=== PATIENT | female | born 1975 | race Two or more races ===

== ENCOUNTER 2017-11-26 09:38 | Emergency (ER) | payer OTHER ==
[2017-11-26 09:52] VITALS: TEMP 98; BMI 29.0
--- NOTE | 2017-11-26 10:37 | PDOC ---
History of Present Illness - General Chief Complaint: Vaginal Bleeding Stated Complaint: Vaginal bleeding Time Seen by Provider: 11/26/17 10:34 History Source: Patient Past History - Past Medical History Allergies/Adverse Reactions: Allergies Allergy/AdvReac Type Severity Reaction Status Date / Time No Known Allergies Allergy Verified 11/26/17 09:52 Home Medications: Ambulatory Orders NK [No Known Home Medication] 11/26/17 COPD: No - Suicide/Smoking/Psychosocial Hx Smoking History: Never smoked Information on smoking cessation initiated: Yes Hx Alcohol Use: No Drug/Substance Use Hx: No Substance Use Type: None Review of Systems - Review of Systems Constitutional: No: Chills, Fever ABD/GI: Yes: Abdominal cramping. No: Nausea, Vomiting : No: Burning, Flank Pain *Physical Exam - Vital Signs Last Vital Signs Temp Pulse Resp BP Pulse Ox 98 F 69 18 137/80 99 11/26/17 09:49 11/26/17 09:49 11/26/17 09:49 11/26/17 09:49 11/26/17 09:49 - Physical Exam General Appearance: Yes: Appropriately Dressed. No: Apparent Distress HEENT: positive: Normal Voice Neck: positive: Supple Respiratory/Chest: negative: Respiratory Distress Gastrointestinal/Abdominal: positive: Soft. negative: Tender Musculoskeletal: negative: CVA Tenderness Integumentary: positive: Dry, Warm Neurologic: positive: Fully Oriented, Alert, Normal Mood/Affect ED Treatment Course - LABORATORY CBC & Chemistry Diagram: 11/26/17 11:56 11/26/17 11:56 Medical Decision Making - Medical Decision Making 11/26/17 10:37 42 yo F, no sig hx, (s/p 2 spon abs), here to be tested for . Patient states her LMP was 09/12/2017 and has had multiple negative tests, including [place] [facility]. States she has now been spotting for the past 4 days w/ vague lower abdominal pain. No dysuria, nausea, vomiting, fever or chills. Patient states she is concerned as she has not gotten a normal period in 2 months and wants another test, including blood work See exam DUB Multiple neg preg tests over past 2 months but wants another evaluation today -labs pending 11/26/17 13:05 Patient's urine and serum tests were negative. Rest of blood work within normal limits. Patient asymptomatic at this time and stable for discharge to follow-up with her [facility] for further evaluation of dysfunctional uterine bleeding *DC/Admit/Observation/Transfer Diagnosis at time of Disposition: DUB (dysfunctional uterine bleeding) - Discharge Dispostion Disposition: HOME Condition at time of disposition: Good - Referrals - Patient Instructions Additional Instructions: Cabrera prueba de embarazo fue negativa junto con cabrera otro anlisis de sirena. Definitivamente no ests embarazada. Yamilka sangrado vaginal anormal posiblemente podra representar la fase gilda- menopusica, cerca del momento de menopausia de carol eladio, que es cuando cesa cabrera perodo Sin embargo, esto no es seguro y necesita hacer un seguimiento con cabrera gineclogo para carol evaluacin adicional - Post Discharge Activity
[2017-11-26 12:11] LABS: URINE APPEARANCE SLCLOUDY; URINE BILIRUBIN NEGATIVE (<2.0 mg/dL); URINE COLOR YELLOW; URINE GLUCOSE (UA) NEGATIVE (NEGATIVE); URINE KETONE NEGATIVE (NEGATIVE); URINE NITRITE NEGATIVE (NEGATIVE); URINE PROTEIN NEGATIVE (NEGATIVE); URINE UROBILINOGEN NEGATIVE mg/dL (0.2-1.0)
[2017-11-26 12:12] LABS: URINE LEUK ESTERASE 2+ (NEGATIVE)
[2017-11-26 12:13] LABS: EPI CELLS FEW /HPF (FEW); URINE BACTERIA FEW /hpf (NONE SEEN)
[2017-11-26 12:15] LABS: BASO % 0.3 % (0-2.0); HEMATOCRIT 40.4 % (32.4-45.2); HEMOGLOBIN 13.5 GM/dL (10.7-15.3); LYMPH % 17.7 % (8-40); MCH 28.6 pg (25.7-33.7); MCHC 33.5 g/dl (32.0-36.0); MEAN CELL VOLUME 85.4 fl (80-96); MEAN PLT VOLUME 9.7 fl (7.5-11.1); MONO % 4.6 % (3.8-10.2); NEUT % 76.4 % (42.8-82.8); PLATELET COUNT 200 K/MM3 (134-434); RBC 4.73 M/mm3 (3.60-5.2); RDW 12.8 % (11.6-15.6); WHITE BLOOD COUNT 10.3 K/mm3 (4.0-10.0)
[2017-11-26 12:42] LABS: ALBUMIN 3.8 g/dl (3.4-5.0); ALK PHOS 70 U/L (45-117); ANION GAP 11 MMOL/L (8-16); BILIRUBIN,TOTAL 0.2 mg/dL (0.2-1); BLOOD UREA NITROGEN 10 mg/dL (7-18); CALCIUM 9.6 mg/dL (8.5-10.1); CHLORIDE 102 mmol/L (98-107); CO2 25 mmol/L (21-32); CREATININE 0.8 mg/dL (0.55-1.3); GLUCOSE,RANDOM 86 mg/dL (74-106); LIPASE 215 U/L (73-393); SGOT/AST 12 U/L (15-37); SGPT/ALT 18 U/L (13-61); SODIUM 138 mmol/L (136-145); TOT PROT 8.2 g/dl (6.4-8.2)
[2017-11-26 13:12] VITALS: BP 128/80; PULSE 70
== END 2017-11-26 13:12 | disposition home or self-care (01) ==
LOC: JER 09:38
DX: N93.8 Other specified abnormal uterine and vaginal bleeding (principal)
CPT/HCPCS: 36415; 80053; 81003; 81015; 83690; 84702; 84703; 85025; 99281-25

== ENCOUNTER 2018-01-30 16:08 | Emergency (ER) | payer OTHER ==
[2018-01-30 16:22] VITALS: TEMP 98; BMI 28.2
--- NOTE | 2018-01-30 16:25 | PDOC ---
Rapid Medical Evaluation Chief Complaint: Lightheaded Time Seen by Provider: 01/30/18 16:23 Medical Evaluation: Allergies Allergy/AdvReac Type Severity Reaction Status Date / Time No Known Allergies Allergy Verified 01/30/18 16:19 Vital Signs Temp Pulse Resp BP Pulse Ox 98.0 F 83 18 95/58 L 100 01/30/18 16:19 01/30/18 16:19 01/30/18 16:19 01/30/18 16:19 01/30/18 16:19 01/30/18 16:24 I have performed a brief in-person evaluation of this patient. The patient presents with a chief complaint of: abd pain and dizziness today. No pmhx Pertinent physical exam findings: pale and hypotensive I have ordered the following:ekg/labs The patient will proceed to the ED for further evaluation. 01/30/18 16:25 Discharge Disposition - Diagnosis Dizziness - Referrals - Patient Instructions - Post Discharge Activity
[2018-01-30 16:37] LABS: BASO % 0.8 % (0-2.0); EOS % 1.3 % (0-4.5); HEMATOCRIT 35.6 % (32.4-45.2); HEMOGLOBIN 12.5 GM/dL (10.7-15.3); MCH 29.5 pg (25.7-33.7); MCHC 35.3 g/dl (32.0-36.0); MEAN CELL VOLUME 83.6 fl (80-96); MEAN PLT VOLUME 9.5 fl (7.5-11.1); MONO % 4.3 % (3.8-10.2); NEUT % 68.6 % (42.8-82.8); PLATELET COUNT 264 K/MM3 (134-434); RBC 4.25 M/mm3 (3.60-5.2); RDW 12.6 % (11.6-15.6); WHITE BLOOD COUNT 12.8 K/mm3 (4.0-10.0)
[2018-01-30] MEDS ORDERED: MAG HYDROX/AL HYDROX/SIMETH 30 ML UNIT-DOSE CUP PO ONE (17:16)
[2018-01-30] MEDS ORDERED: ONDANSETRON 4 MG/2 ML VIAL IVPUSH ONE (17:16)
[2018-01-30] MEDS ORDERED: SODIUM CHLORIDE 1,000 ML IV STA (17:16)
[2018-01-30] MEDS ORDERED: FAMOTIDINE 20 MG/50 ML IVPB 20 MG/50 ML MG IVPB ONE ×2 (17:16→18:57)
--- NOTE | 2018-01-30 17:26 | PDOC ---
History of Present Illness - General Chief Complaint: Lightheaded Stated Complaint: DIZZINESS Time Seen by Provider: 01/30/18 16:23 - History of Present Illness Initial Comments: 01/30/18 17:16 42 yo F with no significant pmh who p/w epigastirc abdominal pain and lightheadedness. Patient reports acute, unremitting, episode of sharp, burning, epiagstirc pain beginning at 3:30 PM today while standing. Reports episode of subsequent lightheadedness, with absent LOC lasting for seconds then resolving spontaneously. Patient daughter at bedside states that patient looked pale, and lips appeared blue. Currently with cont'd abdominal pain. Pain worse with erect sitting position, and aggravated with PO food intake. Endorses nausea without vomiting. Pain not improved with OTC analgesia. Denies GI f/u or h/o endoscopy or colonoscopy. Nml bowel habits.LMP x 2 weeks ago. Patient denies palpitations, vision change, hearing loss, cough, wheezing, PND, orthopnea, F,C, CP, SOB, urinary complaints, abdominal pain, BPR, hematuria, diarrhea, constipation, lightheadedness, weakness, sensory changes. PMHx: as noted above ROS: as noted Allergies: NKDA Past History - Past Medical History Allergies/Adverse Reactions: Allergies Allergy/AdvReac Type Severity Reaction Status Date / Time No Known Allergies Allergy Verified 01/30/18 16:19 Home Medications: Ambulatory Orders NK [No Known Home Medication] 11/26/17 COPD: No - Reproductive History (#): 4 Para: 2 Spontaneous : 2 - Immunization History Immunization Up to Date: Yes - Suicide/Smoking/Psychosocial Hx Smoking History: Never smoked Hx Alcohol Use: No Drug/Substance Use Hx: No Substance Use Type: None Review of Systems - Review of Systems Comments:: 01/30/18 17:30 GENERAL/CONSTITUTIONAL: No fever or chills. No weakness. HEAD, EYES, EARS, NOSE AND THROAT: No change in vision. No ear pain or discharge. No sore throat. CARDIOVASCULAR: No chest pain or shortness of breath RESPIRATORY: No cough, wheezing, or hemoptysis. GASTROINTESTINAL: + Abdominal pain, nausea, vomiting. No diarrhea or constipation. GENITOURINARY: No dysuria, frequency, or change in urination. MUSCULOSKELETAL: No joint or muscle swelling or pain. No neck or back pain. SKIN: No rash NEUROLOGIC: No headache, vertigo, loss of consciousness, or change in strength/ sensation. ENDOCRINE: No increased thirst. No abnormal weight change HEMATOLOGIC/LYMPHATIC: No anemia, easy bleeding, or history of blood clots. ALLERGIC/IMMUNOLOGIC: No hives or skin allergy. *Physical Exam - Vital Signs Last Vital Signs Temp Pulse Resp BP Pulse Ox 98.0 F 83 18 95/58 L 100 01/30/18 16:19 18 16:19 01/30/18 16:19 01/30/18 16:19 01/30/18 16:19 - Physical Exam Comments: 01/30/18 17:31 GENERAL: Awake, alert, and fully oriented, in no acute distress HEAD: No signs of trauma, normocephalic, atraumatic EYES: PERRLA, EOMI, sclera anicteric, conjunctiva clear ENT: Hearing grossly normal, nares patent, oropharynx clear without exudates. Moist mucosa NECK: Normal ROM, supple, no lymphadenopathy, JVD, or masses LUNGS: No distress, speaks full sentences, clear to auscultation bilaterally HEART: Regular rate and rhythm, normal S1 and S2, no murmurs, rubs or gallops, peripheral pulses normal and equal bilaterally. ABDOMEN: + Epigastric ttp. Soft, NDS, nontender, normoactive bowel sounds. No guarding, no rebound. No masses. Neg CVA ttp. EXTREMITIES : Normal inspection, Normal range of motion, no edema. No clubbing or cyanosis. SKIN: Warm, Dry, normal turgor, no rashes or lesions noted Moderate Sedation - Procedure Monitoring Vital Signs: Procedure Monitoring Vital Signs Temperature 98.0 F 01/30/18 16:19 Pulse Rate 83 01/30/18 16:19 Respiratory Rate 18 01/30/18 16:19 Blood Pressure 95/58 L 01/30/18 16:19 O2 Sat by Pulse Oximetry (%) 100 01/30/18 16:19 ED Treatment Course - LABORATORY CBC & Chemistry Diagram: 01/30/18 12:23 01/30/18 12:23 - ADDITIONAL ORDERS Additional order review: Laboratory Results 01/30/18 12:23 Serum , Qual Negative 01/30/18 12:23 RBC 4.25 MCV 83.6 MCHC 35.3 RDW 12.6 MPV 9.5 Neutrophils % 68.6 Lymphocytes % 25.0 D Monocytes % 4.3 Eosinophils % 1.3 Basophils % 0.8 Medical Decision Making - Medical Decision Making 01/30/18 17:26 42 yo F with no significant pmh who p/w epigastria abdominal pain and lightheadedness. BP 95/58, vitals otherwise wnl, AF. Will evaluate for cardiac dysarrythmias, hypoglycemia, electrolyte abnml, metabolic and toxic derangements , acid base disturbances, infection. + epigastria/RUQ ttp. Possible esophagitis , gastritis, viscous perforation, gastroenteritis, biliary dz., pancreatitis. Low suspicion AAA, Ao dissection, pyelonephritis, nephrolithiasis. ED Course: CBC,CMP, Lipase, HCG, UA, EKG. Zofran, Maloox, NS CXR UPRIGHT 01/30/18 17:33 BP 95/58 EKG: NSR with absent LUKE, STD. Normal interval duration and axis. 01/30/18 20:36 Repeat BP 122/77 01/30/18 21:25 HCG: Neg RUQ U/S: Cholelithiasis, CBD 0.6 cm, otherwise wnl. No evidence of choleycysitis. WBC: 12.8. Afebrile. No clinical s/s choleyctstitis, cholangitis. Abdominal pain resolved. tolerating PO intake CXR: No free air under diaphragm or pneumomediastinum. Unremarkable. Patient advised to f/u with surgery. *DC/Admit/Observation/Transfer Diagnosis at time of Disposition: Dizziness, Epigastric abdominal pain - Discharge Dispostion Condition at time of disposition: Stable Decision to Admit order: No - Referrals Referrals: Erik Blackman MD [Staff Physician] - - Patient Instructions Printed Discharge Instructions: DI for Epigastric Pain Additional Instructions: Please return to the emergency department with any new or worsening symptoms or concerns. Please follow up with your primary care physician within 72 hours. Please follow up with gastroenterology within one week. - Post Discharge Activity - Attestations Physician Attestion: 01/30/18 21:26 I attest to the information provided in this note.
[2018-01-30 17:55] LABS: ALBUMIN 3.6 g/dl (3.4-5.0); ALK PHOS 66 U/L (45-117); ANION GAP 12 MMOL/L (8-16); BILIRUBIN,TOTAL 0.2 mg/dL (0.2-1); BLOOD UREA NITROGEN 12 mg/dL (7-18); CALCIUM 8.7 mg/dL (8.5-10.1); CHLORIDE 105 mmol/L (98-107); CO2 22 mmol/L (21-32); CREATININE 1.1 mg/dL (0.55-1.3); GLUCOSE,RANDOM 139 mg/dL (74-106); LIPASE 322 U/L (73-393); POTASSIUM 4.2 mmol/L (3.5-5.1); SGOT/AST 22 U/L (15-37); SGPT/ALT 20 U/L (13-61); SODIUM 140 mmol/L (136-145); TOT PROT 7.3 g/dl (6.4-8.2)
--- NOTE | 2018-01-30 18:30 | PDOC ---
Attending Attestation - HPI HPI: 01/30/18 18:54 The patient is a 42-year-old female with no significant past medical history presents to the emergency department with epigastric pain since 3:30 pm today. The patient presents with an acute onset of sharp, burning epigastric pain, that radiation up to the throat. The patient reports the pain is associated with nausea and a single episode of lightheadedness, that has since resolved, denies LOC or vomiting. Allergies: NKDA. - Medical Decision Making 01/30/18 18:54 Documentation prepared by Shirley Munroe, acting as medical care manager for Tim Talamantes MD. <Shirley Munroe - Last Filed: 01/30/18 19:01> - Resident Resident Name: Lucien Brown - ED Attending Attestation I have performed the following: I have examined & evaluated the patient, The case was reviewed & discussed with the resident, I agree w/resident's findings & plan, Exceptions are as noted - Physicial Exam PE: 01/30/18 20:14 Patient is awake and alert, well-nourished, in no distress Normocephalic and atraumatic PERRLA, no scleral icterus, conjunctiva pink CTA RRR Abdomen is soft, nondistended, mild right upper quadrant tenderness is appreciated without guarding rebound; there is no tenderness at McBurney's; No CVA ttp bilaterally - Medical Decision Making 01/30/18 20:15 Patient is a 42-year-old female who presents with epigastric and right upper quadrant pain and transient episode of dizziness that has now resolved. Patient is afebrile and borderline hypotensive on initial evaluation. Differential diagnoses includes esophagitis versus gastritis versus cholelithiasis versus perforated viscus. Will fluid resuscitate; we'll administer H2 blockers. Will obtain right upper quadrant ultrasound and an upright chest x-ray to rule out gallbladder disease versus free air under the diaphragm respectively. Will reassess. <Tim Talamantes - Last Filed: 01/30/18 20:15>
[2018-01-30] MEDS ORDERED: MAG HYDROX/AL HYDROX/SIMETH 30 ML UNIT-DOSE CUP ONE (18:56)
[2018-01-30] MEDS ORDERED: ONDANSETRON 4 MG/2 ML VIAL ONE (18:57)
[2018-01-30 22:03] VITALS: BP 122/77; PULSE 80
--- NOTE | 2018-01-31 21:23 | EKG ---
Test Reason : Blood Pressure : / mmHG Vent. Rate : 089 BPM Atrial Rate : 089 BPM P-R Int : 130 ms QRS Dur : 076 ms QT Int : 376 ms P-R-T Axes : 073 039 037 degrees QTc Int : 457 ms NORMAL SINUS RHYTHM NORMAL ECG NO PREVIOUS ECGS AVAILABLE Confirmed by EVELIN YUN, CANDELARIA ([id number]) on 01/31/2018 9:23:03 PM Referred By: Confirmed By:CANDELARIA WATERS MD
== END 2018-01-30 22:18 | disposition home or self-care (01) ==
LOC: JER 16:08
PROC: 3E033GC Introduction of Other Therapeutic Substance into Peripheral Vein, Percutaneous Approach (ICD-10-PCS; principal; 2018-01-30)
PROC: 3E0337Z Introduction of Electrolytic and Water Balance Substance into Peripheral Vein, Percutaneous Approach (ICD-10-PCS; 2018-01-30)
DX: R10.13 Epigastric pain (principal); R42 Dizziness and giddiness
CPT/HCPCS: 36415; 71045-TC-FY; 76705-TC; 80053; 82550; 83690; 84484; 84703; 85025; 86850; 86900; 86901; 93005; 93010; 96361; 96365; 96375; 99282-25; J7030

== ENCOUNTER 2018-03-20 09:48 | Day surgery (SDC) | payer OTHER ==
[2018-03-19 09:00] VITALS: BMI 27.7
--- NOTE | 2018-03-20 11:53 | HP ---
CHIEF COMPLAINT:here for elctive lap bridget PCP: HISTORY OF PRESENT ILLNESS:she was in the er 02/09/18 and w/u revealed symptomatic gallbladder disease; she was seen in the office and is presenting for elective lap bridget ER course was notable for: (1)n/a (2) (3) Recent Travel:no PAST MEDICAL HISTORY:none PAST SURGICAL HISTORY:C-S Social History: Smoking:none Alcohol:none Drugs: none Family History:none Allergies No Known Allergies Allergy (Verified 03/20/18 10:37) HOME MEDICATIONS: Home Medications Medication Instructions Recorded NK [No Known Home Medication] 11/26/17 REVIEW OF SYSTEMS CONSTITUTIONAL: Absent: fever, chills, diaphoresis, generalized weakness, malaise, loss of appetite, weight change HEENT: Absent: rhinorrhea, nasal congestion, throat pain, throat swelling, difficulty swallowing, mouth swelling, ear pain, eye pain, visual changes CARDIOVASCULAR: Absent: chest pain, syncope, palpitations, irregular heart rate, lightheadedness , peripheral edema RESPIRATORY: Absent: cough, shortness of breath, dyspnea with exertion, orthopnea, wheezing, stridor, hemoptysis GASTROINTESTINAL: Absent: abdominal pain, abdominal distension, nausea, vomiting, diarrhea, constipation, melena, hematochezia GENITOURINARY: Absent: dysuria, frequency, urgency, hesitancy, hematuria, flank pain, genital pain MUSCULOSKELETAL: Absent: myalgia, arthralgia, joint swelling, back pain, neck pain SKIN: Absent: rash, itching, pallor HEMATOLOGIC/IMMUNOLOGIC: Absent: easy bleeding, easy bruising, lymphadenopathy, frequent infections ENDOCRINE: Absent: unexplained weight gain, unexplained weight loss, heat intolerance, cold intolerance NEUROLOGIC: Absent: headache, focal weakness or paresthesias, dizziness, unsteady gait, seizure, mental status changes, bladder or bowel incontinence PSYCHIATRIC: Absent: anxiety, depression, suicidal or homicidal ideation, hallucinations. PHYSICAL EXAMINATION Vital Signs - 24 hr 03/20/18 10:31 Temperature 98.1 F Pulse Rate 82 Respiratory 16 Rate Blood Pressure 105/75 O2 Sat by Pulse 99 Oximetry (%) GENERAL: Awake, alert, and fully oriented, in no acute distress. HEAD: Normal with no signs of trauma. EYES: Pupils equal, round and reactive to light, extraocular movements intact, sclera anicteric, conjunctiva clear. No lid lag. EARS, NOSE, THROAT: Ears normal, nares patent, oropharynx clear without exudates. Moist mucous membranes. NECK: Normal range of motion, supple without lymphadenopathy, JVD, or masses. LUNGS: Breath sounds equal, clear to auscultation bilaterally. No wheezes, and no crackles. No accessory muscle use. HEART: Regular rate and rhythm, normal S1 and S2 without murmur, rub or gallop. ABDOMEN: Soft, nontender, not distended, normoactive bowel sounds, no guarding, no rebound, no masses. No hepatomegaly or splenomegaly. C-S scar; no hernias MUSCULOSKELETAL: Normal range of motion at all joints. No bony deformities or tenderness. No CVA tenderness. UPPER EXTREMITIES: 2+ pulses, warm, well-perfused. No cyanosis. No clubbing. No peripheral edema. LOWER EXTREMITIES: 2+ pulses, warm, well-perfused. No calf tenderness. No peripheral edema. NEUROLOGICAL: Cranial nerves II-XII intact. Normal speech. Normal gait. PSYCHIATRIC: Cooperative. Good eye contact. Appropriate mood and affect. SKIN: Warm, dry, normal turgor, no rashes or lesions noted, normal capillary refill. Laboratory Results - last 24 hr 03/20/18 09:50 Urine HCG, Qual Negative ASSESSMENT/PLAN: symptomatic gallbladder disease; for lap bridget possible open; r/b/t/a's d/w her and she wishes to proceed; informed consent obtained. Cas Smallwood MD FACS Visit type - Emergency Visit Emergency Visit: No - New Patient This patient is new to me today: No - Critical Care Critical Care patient: No
[2018-03-20] MEDS ORDERED: ceFAZolin SODIUM 1 GM VIAL IVPB ONE (12:10)
[2018-03-20] MEDS ORDERED: BUPIVACAINE HCL/PF (5 MG/ML) 30 ML VIAL IJ ONE ×2 (12:34→12:59)
[2018-03-20] MEDS ORDERED: ONDANSETRON 4 MG/2 ML VIAL IVPUSH PRN (13:24)
[2018-03-20] MEDS ORDERED: oxyCODONE HCL 5 MG TABLET PO PRN (13:24)
[2018-03-20] MEDS ORDERED: LACTATED RINGERS SOLUTION 1,000 ML IV SCH (13:30)
[2018-03-20 13:38] VITALS: TEMP 98
[2018-03-20] MEDS ORDERED: ONDANSETRON 4 MG/2 ML VIAL IVPUSH ONE (14:15)
[2018-03-20] MEDS ORDERED: ONDANSETRON 4 MG/2 ML VIAL ONE (14:18)
[2018-03-20 17:35] VITALS: BP 110/60; PULSE 80
--- NOTE | 2018-03-20 21:40 | OP ---
DATE OF OPERATION: 03/20/2018 PREOPERATIVE DIAGNOSES: Chronic cholecystitis and cholelithiasis. POSTOPERATIVE DIAGNOSES: Chronic cholecystitis and cholelithiasis. PROCEDURE: Laparoscopic cholecystectomy. SURGEON: Cas Smallwood MD FLIGHT MANAGER: Taylor Pena PA-C ANESTHESIA: General. OPERATIVE FINDINGS: Cholelithiasis and chronic cholecystitis. The rest of the findings were unremarkable. DESCRIPTION OF PROCEDURE: The patient was placed on the operating room table in supine position. After the induction of general anesthesia, the patient's abdomen was prepped with ChloraPrep and draped in sterile fashion. Time-out was taken and then pneumoperitoneum established above the umbilicus using a Veress needle. Once 15 mm of intra-abdominal pressure was obtained, a 5-mm port was placed at the umbilicus. Additional lateral 5-mm ports and a subxiphoid 12-mm port were placed and laparoscopy carried out, and the previously noted findings were observed. The gallbladder was placed on cephalad and lateral traction, and dissection was begun at the neck of the gallbladder where the peritoneum was opened medially and laterally using blunt and sharp dissection and electrocautery. Dissection continued in the triangle of Calot where the cystic duct was identified coursing from the neck of the gallbladder distally to the common bile duct. It was dissected proximally and distally for length. Similarly, the artery was similarly identified and dissected. A critical view of safety was taken, and then the cystic duct divided proximally and distally using Endo Steph after it was clipped twice proximally and distally with large hemoclips. The artery was similarly clipped and divided. Hemostasis was checked for and noted to be good and then the gallbladder was removed from the liver bed in a retrograde fashion using electrocautery. Prior to removal from the edge of the liver, hemostasis was again verified and then the gallbladder removed from the edge of the liver, placed in an EndoCatch, and brought out through the subxiphoid port. Pneumoperitoneum was reestablished, hemostasis verified again, and then the 5-mm lateral and subxiphoid ports were removed under laparoscopic vision without evidence of bleeding from the port sites. The umbilical port was removed and the pneumoperitoneum evacuated. All port sites were infiltrated with 0.5% Marcaine and the skin edges closed with 4-0 Biosyn in a subcuticular and continuous fashion. Steri-Strips and Band-Aid dressings were placed and the procedure terminated at this point and the patient aroused from general anesthesia and transferred to the post anesthesia care unit in stable condition awake and alert. ESTIMATED BLOOD LOSS: Minimal. DRAINS: None. SPECIMEN: Gallbladder and contents to pathology. I, Cas Smallwood, was physically present in the operating room from the time the patient was placed on the operating room table until she was transferred to the post anesthesia care unit in my accompaniment. MD MIRTHA Tapia/[id number] MTDD
--- NOTE | 2018-03-24 17:00 | PATH ---
Surgical Pathology Report Patient Name: PAULO VARGAS [facility]. Rec. #: [id number] /Age/Gender: 1975 (Age: 42) / F Account: [id number] Location: [facility] SURGICAL Taken: 03/20/2018 Received: 03/23/2018 Reported: 03/24/2018 Physicians: Cas Smallwood MD Specimen(s) Received GALLBLADDER Clinical History Cholelithiasis, chronic cholecystitis Final Diagnosis GALLBLADDER, LAPAROSCOPIC CHOLECYSTECTOMY: CHRONIC CHOLECYSTITIS WITH CHOLELITHIASIS. Electronically Signed Frida cAosta M.D. Gross Description Received in formalin, labeled "gallbladder," is a 7.0 x 1.6 x 1.4 cm. gallbladder with a 0.2 cm. in length portion of cystic duct attached. The outer surface is lindquist-malone with a focal defect and varies from smooth to shaggy. The lumen contains green, tenacious bile as well as a single 0.3 cm in greatest dimension black, irregular cholelith. The mucosa is green and velvety. The wall of the gallbladder averages 0.1 cm. in thickness. Financial Wellness Coach sections are submitted in one cassette. 03/23/2018 [place]03/23/2018
== END 2018-03-20 16:15 | disposition home or self-care (01) ==
LOC: JASU-SURG 09:48
PROVIDERS: ATTEND Surgery
PROC: 0FT44ZZ Resection of Gallbladder, Percutaneous Endoscopic Approach (ICD-10-PCS; principal; 2018-03-20 12:00)
DX: K80.10 Calculus of gallbladder with chronic cholecystitis without obstruction (principal)
CPT/HCPCS: 84703; 88304-TC; 94760